=== PATIENT | male | born 1980 | race Caucasian/White ===

== ENCOUNTER → 2020-03-09 09:48 | Outpatient (CLI) | payer OTHER, SELFPAY ==
[2020-03-14 22:36] LABS: QuantiFERON Mitogen Value 5.38 IU/mL (.); QuantiFERON Nil Value 0.14 IU/mL (.); QuantiFERON TB Gold Plus Negative (Negative); QuantiFERON TB1 Ag Value 0.22 IU/mL (.); QuantiFERON TB2 Ag Value 0.19 IU/mL (.)
== END ==
PROVIDERS: Referring Provider Physician Assistant; Visit Provider Physician Assistant
DX: Z11.1 Encounter for screening for respiratory tuberculosis (principal)
CPT/HCPCS: 36415; 86480

== ENCOUNTER → 2021-04-25 10:57 | Outpatient (CLI) | payer OTHER, SELFPAY ==
[2021-04-25 13:18] LABS: COVID19 -Nasal RAPID Negative (Negative)
== END ==
PROVIDERS: Visit Provider Nurse Practitioner Family
DX: Z20.822 Contact with and (suspected) exposure to COVID-19 (principal)
CPT/HCPCS: 87635